=== PATIENT | male | born 1965 | race Caucasian/White ===

== ENCOUNTER 2017-05-11 10:18 | Emergency (ER) | payer BC ==
[~2017-05-11] VITALS: Ht 177.8 cm; Wt 89.8 kg
[2017-05-11 11:04] LABS: BASOPHIL % 0.3 % (0-2); PLATELET COUNT 272 x10^3mcL (130-400); RED CELL DISTRIBUTION WIDTH 13.7 % (11.5-14.5)
[2017-05-11 11:17] LABS: CALCIUM 10.1 mg/dL (8.5-10.1); CARBON DIOXIDE 31.5 mmol/L (21-32); CREATININE SERUM 1.4 mg/dL (0.7-1.3); POTASSIUM SERUM 4.4 mmol/L (3.5-5.1)
[2017-05-11 11:23] LABS: BILIRUBIN TOTAL 0.98 mg/dL (0.20-1.00); TOTAL PROTEIN, SERUM 8.1 g/dL (6.4-8.2)
[2017-05-11 11:24] LABS: ALBUMIN 3.3 g/dL (3.4-5.0)
[2017-05-11 14:55] VITALS: BP 134/91
== END 2017-05-11 14:55 | disposition home or self-care (01) ==
LOC: ED 10:18
PROVIDERS: Specialist
DX: K57.32 Diverticulitis of large intestine without perforation or abscess without bleeding (principal)
CPT/HCPCS: 83880; J1956; J3490; J7030

== ENCOUNTER 2017-08-18 17:23 | Emergency (ER) | payer BC ==
[~2017-08-18] VITALS: Ht 177.8 cm; Wt 88.5 kg
[2017-08-18 17:29] VITALS: Ht 177.8 cm; Wt 88.5 kg
[2017-08-18 18:17] LABS: BASOPHIL % 0.6 % (0-2); PLATELET COUNT 240 x10^3mcL (130-400); RED CELL DISTRIBUTION WIDTH 14.4 % (11.5-14.5)
[2017-08-18 18:25] LABS: CALCIUM 9.4 mg/dL (8.5-10.1); CHLORIDE SERUM 102 mmol/L (98-107); CREATININE SERUM 0.8 mg/dL (0.7-1.3); GFR1 > 60 mL/min; GLUCOSE SERUM 94 mg/dL (74-106); POTASSIUM SERUM 3.7 mmol/L (3.5-5.1); SODIUM SERUM 138 mmol/L (136-145)
[2017-08-18 18:31] LABS: ALBUMIN 3.6 g/dL (3.4-5.0); ALKALINE PHOSPHATASE 67 U/L (46-116); ALT/SGPT 44 U/L (16-63); AST/SGOT 46 U/L (15-37); BILIRUBIN TOTAL 0.77 mg/dL (0.20-1.00); LIPASE 325 IU/L (73-393); TOTAL PROTEIN, SERUM 7.3 g/dL (6.4-8.2)
[2017-08-18 20:46] VITALS: BP 145/95
== END 2017-08-18 20:46 | disposition home or self-care (01) ==
LOC: ED 17:23
PROVIDERS: Emergency Medicine
DX: R10.9 Unspecified abdominal pain (principal); I10 Essential (primary) hypertension; E78.00 Pure hypercholesterolemia, unspecified
CPT/HCPCS: J0780; J1885; J7030

== ENCOUNTER 2019-04-21 08:28 | Emergency (ER) | payer BC ==
[~2019-04-21] VITALS: Ht 177.8 cm; Wt 91.6 kg
[2019-04-21 08:39] VITALS: Ht 177.8 cm; Wt 91.6 kg
[2019-04-21 09:42] LABS: BASOPHIL % 0.5 % (0-2); PLATELET COUNT 277 x10^3mcL (130-400); RED CELL DISTRIBUTION WIDTH 13.4 % (11.5-14.5)
[2019-04-21 09:52] LABS: ALBUMIN 3.7 g/dL (3.4-5.0); ALKALINE PHOSPHATASE 81 U/L (46-116); ALT/SGPT 30 U/L (16-63); AST/SGOT 28 U/L (15-37); BILIRUBIN TOTAL 0.7 mg/dL (0.20-1.00); CALCIUM 9.2 mg/dL (8.5-10.1); CARBON DIOXIDE 29.2 mmol/L (21-32); CHLORIDE SERUM 103 mmol/L (98-107); GFR1 > 60 mL/min; GLUCOSE SERUM 90 mg/dL (74-106); LIPASE 276 IU/L (73-393); POTASSIUM SERUM 4.2 mmol/L (3.5-5.1); SODIUM SERUM 140 mmol/L (136-145); TOTAL PROTEIN, SERUM 7.6 g/dL (6.4-8.2)
[2019-04-21 10:16] LABS: microscopic required? YES; urine erythrocyte TRACE (NEGATIVE)
[2019-04-21 13:34] VITALS: BP 129/93
== END 2019-04-21 13:34 | disposition home or self-care (01) ==
LOC: ED 08:28
PROVIDERS: Emergency Medicine
DX: K57.92 Diverticulitis of intestine, part unspecified, without perforation or abscess without bleeding (principal); M10.9 Gout, unspecified; E78.00 Pure hypercholesterolemia, unspecified; I10 Essential (primary) hypertension
CPT/HCPCS: J1885; J1956; J2405; J3490; J7030